=== PATIENT | male | born 1960 | race Caucasian/White ===

== ENCOUNTER 2021-07-12 15:22 | Emergency (ER) | payer OTHER ==
[~2021-07-12] VITALS: Ht 182.9 cm; Wt 99.8 kg
[2021-07-12] MEDS ORDERED: SERTRALINE HCL100 MG PO (15:38)
[2021-07-12] MEDS ORDERED: OMEPRAZOLE40 MG PO (15:38)
[2021-07-12] MEDS ORDERED: ALPRAZOLAM 0.0.25 M1 PO (15:38)
[2021-07-12] MEDS ORDERED: TAMSULOSIN HCL0.4 MG PO (15:39)
[2021-07-12 15:48] LABS: URINE BILIRUBIN NEGATIVE (Negative); URINE BLOOD 3+ (Negative); URINE CLARITY CLOUDY; URINE COLOR YELLOW; URINE GLUCOSE-RANDOM* NEGATIVE (Negative); URINE KETONES 1+ (Negative); URINE LEUKOCYTES-REFLEX 3+ (Negative); URINE NITRITE-REFLEX NEGATIVE (Negative); URINE PROTEIN (DIPSTICK) 2+ (Negative); URINE UROBILINOGEN 0.2 E.U./dl (0.2-1.0)
[2021-07-12 15:57] LABS: BACTERIA-REFLEX >30 Many /HPF (None Seen); CRYSTALS None Seen /LPF (None Seen); SQUAMOUS None Seen /LPF (0-3); URINE RBC >20 Many /HPF (NONE SEEN); URINE WBC-REFLEX 6-15 Few /HPF (0-5)
[2021-07-12] MEDS ORDERED: PHENAZOPYRIDIN200 M2 PO (16:34)
[2021-07-12] MEDS ORDERED: CIPRO500 M1 PO (16:34)
[2021-07-12 16:58] VITALS: BP 142/75
== END 2021-07-12 16:50 | disposition home or self-care (01) ==
LOC: ER 15:22
PROVIDERS: Physician Assistant
DX: N30.01 Acute cystitis with hematuria (principal); N39.0 Urinary tract infection, site not specified